=== PATIENT | female | born 1995 | race Two or more races ===

== ENCOUNTER 2021-09-12 10:49 | Emergency (ER) | payer OTHER ==
[2021-09-12 11:13] VITALS: BP 124/71; PULSE 86; TEMP 98.1; BMI 41.2
[2021-09-12] MEDS ORDERED: ALBUTEROL SO4 2.5/IPRATROPIUM 0.5 INH SOL 3 ML VIAL.NEB. NEB ONE (11:40)
[2021-09-12] MEDS ORDERED: guaiFENesin/D-METHORPHAN HB 10 ML UNIT-DOSE CUPS PO ONE (11:41)
[2021-09-13 17:09] LABS: SARS-CoV-2 NAA Detected (Not Detected)
== END 2021-09-12 14:17 | disposition home or self-care (01) ==
LOC: JER 10:49
PROC: 3E0F7GC Introduction of Other Therapeutic Substance into Respiratory Tract, Via Natural or Artificial Opening (ICD-10-PCS; principal; 2021-09-12)
DX: J45.901 Unspecified asthma with (acute) exacerbation (principal)
CPT/HCPCS: 87807; 99284-25; C9803; U0003; U0005